=== PATIENT | female | born 1950 | race Caucasian/White ===

== ENCOUNTER → 2021-07-20 | Day surgery (SDC) | payer MEDICARE, BC ==
[~2021-07-20] MED LIST: B&O 60MG R/S 60 MG SUPP PR ONE; BENADRYL25 M1 PO; CEFTRIAXONE 1 GM VIAL ONE; CIPRO500 MG PO; DEXAMETHASONE SOD PHOS INJ 4 MG/ML SDV ONE; EPHEDRINE SULFATE INJ 50 MG/ML VIAL ONE; FENTANYL CITRATE/PF 100MCG/2 ML INJ ONE; GENTAMICIN 80MG/NS 100 ML 200 ML IV ONE; GLYCOPYRROLATE INJ 0.2 MG/ML VIAL ONE; IOPAMIDOL 610MG/1ML 300 MG/ML VIAL IV ONE; LIDOCAINE HCL 2% LOCAL INJ 5 ML SDV VIAL INJ ONE; MIDAZOLAM HCL 2 MG/2 ML VIAL ONE; NEOSTIGMINE 1 MG/ML 10ML VIAL ONE; ONDANSETRON HCL INJ 2MG/ML 2ML 2 MG/ML VIAL ONE; POVIDONE IODINE 0.05% 0.05 % ML PO ONE; PROPOFOL IV EMULSION 10 MG/ML 20 ML VIAL ONE; PROTONIX40 MG/ML PO; ROCURONIUM BROMIDE 10 MG/ML 5ML VIAL IV ONE; SEVOFLURANE INHAL SOLN 250 ML PEN BTL ONE; VICODIN HP 10-1 EAC1 PO; ZYVOX600 MG PO
[2021-07-20 09:51] LABS: BASOPHILS # (AUTO) 0.1 (0.0-0.1); BASOPHILS % 1.1 % (0.0-1.0); EOSINOPHILS # (AUTO) 0.3 (0.0-0.4); EOSINOPHILS % 3.3 % (0.0-6.0); HEMATOCRIT 36.4 % (34.2-44.1); LYMPHOCYTES # (AUTO) 0.9 (1.0-3.2); LYMPHOCYTES % 11.8 % (18.0-39.1); MEAN CORPUSCULAR HEMOGLOBIN 26.8 pg (28-32); MEAN CORPUSCULAR HGB CONC 30.2 g/dL (31-35); MEAN CORPUSCULAR VOLUME 88.6 fL (81-99); MONOCYTES # (AUTO) 0.5 (0.2-0.8); MONOCYTES % 6.6 % (4.4-11.3); NEUTROPHILS % 76.8 % (38.7-80.0); PLATELET COUNT 276 x10e3/uL (140-360); RED BLOOD COUNT 4.11 x10e6/uL (3.6-5.1); RED CELL DISTRIBUTION WIDTH 15.6 % (11.7-14.4)
[2021-07-20 10:14] LABS: ANION GAP 14.2 mmol/L (8-16); CREATININE, SERUM 0.58 mg/dL (0.57-1.11); POTASSIUM 4.2 mmol/L (3.5-5.1)
[2021-07-20 12:57] VITALS: BP 136/62
== END | disposition home or self-care (01) ==
LOC: OR 08:07
PROVIDERS: ATTEND Urology
DX: N20.0 Calculus of kidney (principal); Z46.6 Encounter for fitting and adjustment of urinary device; N13.30 Unspecified hydronephrosis; N13.70 Vesicoureteral-reflux, unspecified; N81.10 Cystocele, unspecified; N81.6 Rectocele; N95.2 Postmenopausal atrophic vaginitis; N36.8 Other specified disorders of urethra; N32.89 Other specified disorders of bladder; Q63.8 Other specified congenital malformations of kidney; G82.20 Paraplegia, unspecified; B19.10 Unspecified viral hepatitis B without hepatic coma; Z88.2 Allergy status to sulfonamides; Z20.822 Contact with and (suspected) exposure to COVID-19
CPT/HCPCS: 36415; 52332; 52352; 71046; 74018; 74420; 80048; 84550; 85025; 87086; 88300; 93005; C1766; C1769; C2617; J0696; J1100; J1580; J2001; J2250; J2405; J2704; J2710; J3010; Q9967; U0002

== ENCOUNTER → 2021-08-26 | Day surgery (SDC) | payer MEDICARE, BC ==
[~2021-08-26] MED LIST changes: +BUPIVACAINE 0.25% 30ML SDV ONE; -EPHEDRINE SULFATE INJ 50 MG/ML VIAL ONE; +FLUCONAZOLE 200 MG/100 ML 100 ML IV ONE; -GLYCOPYRROLATE INJ 0.2 MG/ML VIAL ONE; +LIDOCAINE 2% /EPINEPHRINE 20 ML SDV INJ ONE; -MIDAZOLAM HCL 2 MG/2 ML VIAL ONE; -NEOSTIGMINE 1 MG/ML 10ML VIAL ONE; -ROCURONIUM BROMIDE 10 MG/ML 5ML VIAL IV ONE; +ZANTAC-360 (FAM10 MG PO
[2021-08-26 11:13] LABS: BASOPHILS # (AUTO) 0.1 (0.0-0.1); BASOPHILS % 1.1 % (0.0-1.0); EOSINOPHILS # (AUTO) 0.3 (0.0-0.4); EOSINOPHILS % 4.2 % (0.0-6.0); HEMATOCRIT 34.5 % (34.2-44.1); HEMOGLOBIN 10.8 g/dL (12.0-16.0); LYMPHOCYTES # (AUTO) 1.3 (1.0-3.2); LYMPHOCYTES % 16.5 % (18.0-39.1); MEAN CORPUSCULAR HEMOGLOBIN 26.3 pg (28-32); MEAN CORPUSCULAR HGB CONC 31.3 g/dL (31-35); MEAN CORPUSCULAR VOLUME 83.9 fL (81-99); MONOCYTES # (AUTO) 0.9 (0.2-0.8); NEUTROPHILS # (AUTO) 5.2 (2.1-6.9); NEUTROPHILS % 65.8 % (38.7-80.0); PLATELET COUNT 334 x10e3/uL (140-360); RED BLOOD COUNT 4.11 x10e6/uL (3.6-5.1); RED CELL DISTRIBUTION WIDTH 16.9 % (11.7-14.4)
[2021-08-26 11:26] LABS: ANION GAP 12.7 mmol/L (8-16); BLOOD UREA NITROGEN 10 mg/dL (7-26); BUN/CREATININE RATIO 19 (6-25); CALCIUM 7.9 mg/dL (8.4-10.2); CARBON DIOXIDE 24 mmol/L (22-29); CHLORIDE 100 mmol/L (98-107); CREATININE, SERUM 0.52 mg/dL (0.57-1.11); GLUCOSE 90 mg/dL (74-118); POTASSIUM 3.7 mmol/L (3.5-5.1); SODIUM 133 mmol/L (136-145)
[2021-08-26 15:40] VITALS: BP 132/84
== END | disposition home or self-care (01) ==
LOC: OR 09:23
PROVIDERS: ATTEND Urology
DX: N20.0 Calculus of kidney (principal); R33.9 Retention of urine, unspecified; Z46.6 Encounter for fitting and adjustment of urinary device; N13.70 Vesicoureteral-reflux, unspecified; N81.10 Cystocele, unspecified; N81.6 Rectocele; N95.2 Postmenopausal atrophic vaginitis; N36.8 Other specified disorders of urethra; G82.20 Paraplegia, unspecified; G89.29 Other chronic pain; D64.9 Anemia, unspecified; K21.9 Gastro-esophageal reflux disease without esophagitis; F41.9 Anxiety disorder, unspecified; Z88.2 Allergy status to sulfonamides; Z20.822 Contact with and (suspected) exposure to COVID-19; Z86.19 Personal history of other infectious and parasitic diseases
CPT/HCPCS: 0223U; 36415; 51040; 52352; 74018; 74420; 80048; 84550; 85025; 87086; 87186; 88300; C1766; C1769; J0696; J1100; J1450; J1580; J2001 ×2; J2405; J2704; J3010; Q9967